=== PATIENT | male | born 1975 | race African-American/Black ===

== ENCOUNTER 2016-11-06 08:34 | Emergency (ER) | payer BC | END 2016-11-06 09:14 | disposition home or self-care (01) | LOC: BURERS 08:34 | DX: M10.9 Gout, unspecified (principal); E11.9 Type 2 diabetes mellitus without complications; E78.1 Pure hyperglyceridemia; E78.5 Hyperlipidemia, unspecified; I10 Essential (primary) hypertension; Z79.899 Other long term (current) drug therapy | CPT/HCPCS: 99283 ==

== ENCOUNTER 2018-06-30 10:46 | Emergency (ER) | payer BC, SELFPAY | END 2018-06-30 11:08 | disposition home or self-care (01) | LOC: BURERS 10:46 | DX: J03.90 Acute tonsillitis, unspecified (principal); K12.2 Cellulitis and abscess of mouth; E11.9 Type 2 diabetes mellitus without complications; I10 Essential (primary) hypertension; Z79.899 Other long term (current) drug therapy; Z79.84 Long term (current) use of oral hypoglycemic drugs | CPT/HCPCS: 99282 ==

== ENCOUNTER 2019-01-14 15:11 | Emergency (ER) | payer SELFPAY ==
[2019-01-14] MEDS ORDERED: Ketorolac Tromethamine 60 MG/2 ML VIAL ONE (15:33)
[2019-01-14] MEDS ORDERED: Cyclobenzaprine 10 MG TAB ONE (15:33)
== END 2019-01-14 15:43 | disposition home or self-care (01) ==
LOC: BURERS 15:11
DX: S39.012A Strain of muscle, fascia and tendon of lower back, initial encounter (principal); E11.9 Type 2 diabetes mellitus without complications; I10 Essential (primary) hypertension; E78.00 Pure hypercholesterolemia, unspecified; Z79.899 Other long term (current) drug therapy; Z79.84 Long term (current) use of oral hypoglycemic drugs; X50.9XXA Other and unspecified overexertion or strenuous movements or postures, initial encounter
CPT/HCPCS: 96372; 99283; J1885

== ENCOUNTER 2019-06-15 17:33 | Emergency (ER) | payer OTHER, SELFPAY ==
[2019-06-15 18:15] LABS: Bilirubin Negative (Negative); Blood, Urine Trace (Negative); Clarity Clear (Clear); Glucose, Urine (Dipstick) 500 mg/dL (Negative); Leukocyte Negative (Negative); Nitrite Negative (Negative); Protein, Urine (Dipstick) > or equal to 300 mg/dL (Neg-Trace); Urobilinogen 0.2 mg/dL (Less than 2)
[2019-06-15 18:19] LABS: Bacteria/HPF Rare-Few HPF (None Seen); RBC/HPF 0-3 HPF (0-3); Squamous Epithelial 0-3 HPF (0-3); WBC/HPF 0-3 HPF (0-3)
== END 2019-06-15 18:48 | disposition home or self-care (01) ==
LOC: BURERS 17:33
DX: E11.65 Type 2 diabetes mellitus with hyperglycemia (principal); I10 Essential (primary) hypertension; E78.00 Pure hypercholesterolemia, unspecified; F39 Unspecified mood [affective] disorder; Z79.84 Long term (current) use of oral hypoglycemic drugs; Z79.899 Other long term (current) drug therapy
CPT/HCPCS: 36416; 81003; 81015; 99284

== ENCOUNTER 2021-06-17 19:51 | Emergency (ER) | payer OTHER ==
[2021-06-17] MEDS ORDERED: Dicyclomine 20 MG TAB ONE (20:48)
[2021-06-17] MEDS ORDERED: Ibuprofen 800 MG TAB ONE (20:48)
[2021-06-18 19:22] LABS: SARS-CoV-2 PCR by NAA Not Detected (NotDetected)
== END 2021-06-17 20:55 | disposition home or self-care (01) ==
LOC: BURERS 19:51
DX: R05.9 Cough, unspecified (principal); Z20.822 Contact with and (suspected) exposure to COVID-19; E11.9 Type 2 diabetes mellitus without complications; I10 Essential (primary) hypertension; E78.00 Pure hypercholesterolemia, unspecified
CPT/HCPCS: 87804; 99283; U0003; U0005

== ENCOUNTER 2021-08-28 21:14 | Emergency (ER) | payer OTHER ==
[2021-08-28] MEDS ORDERED: Ketorolac Tromethamine 30 MG/ML VIAL ONE (21:50)
== END 2021-08-28 22:00 | disposition home or self-care (01) ==
LOC: BURERS 21:14
DX: M25.462 Effusion, left knee (principal); E11.9 Type 2 diabetes mellitus without complications; I10 Essential (primary) hypertension; E78.5 Hyperlipidemia, unspecified; Z79.84 Long term (current) use of oral hypoglycemic drugs; Z79.899 Other long term (current) drug therapy
CPT/HCPCS: 96372; J1885

== ENCOUNTER 2022-08-18 11:19 | Emergency (ER) | payer OTHER ==
[2022-08-18] MEDS ORDERED: Ketorolac Tromethamine 30 MG/ML VIAL ONE (12:08)
[2022-08-18] MEDS ORDERED: Morphine 2 MG/ML VIAL ONE (12:08)
== END 2022-08-18 12:18 | disposition home or self-care (01) ==
LOC: BURERS 11:19
DX: M62.838 Other muscle spasm (principal); G89.29 Other chronic pain; E11.9 Type 2 diabetes mellitus without complications; E78.5 Hyperlipidemia, unspecified; I10 Essential (primary) hypertension; Z79.899 Other long term (current) drug therapy; Z79.84 Long term (current) use of oral hypoglycemic drugs
CPT/HCPCS: 96372; J1885; J2272

== ENCOUNTER 2022-08-29 14:05 | Outpatient (CLI) | payer OTHER | END 2022-08-29 14:06 | disposition home or self-care (01) | LOC: BURRAD 14:05 | PROVIDERS: ATTEND Family Medicine | DX: J86.9 Pyothorax without fistula (principal) | CPT/HCPCS: 71046 ==